=== PATIENT | female | born 1980 | race Two or more races ===

== ENCOUNTER 2018-10-17 01:46 | Outpatient (CLI) | payer OTHER | END 2018-10-17 09:13 | disposition home or self-care (01) | LOC: OBS/DEL 01:46 | DX: O26.892 Other specified pregnancy related conditions, second trimester (principal); M62.830 Muscle spasm of back; Z34.02 Encounter for supervision of normal first pregnancy, second trimester ==

== ENCOUNTER 2018-11-29 13:23 | Outpatient (CLI) | payer OTHER | END 2018-11-29 15:42 | disposition home or self-care (01) | LOC: NST 13:23 | DX: Z34.82 Encounter for supervision of other normal pregnancy, second trimester (principal) ==

== ENCOUNTER 2018-12-04 15:28 | Outpatient (CLI) | payer OTHER | END 2018-12-04 16:58 | disposition HB | LOC: NST 15:28 | DX: Z34.83 Encounter for supervision of other normal pregnancy, third trimester (principal) ==

== ENCOUNTER 2018-12-20 13:22 | Inpatient (IN) | payer OTHER ==
[~2018-12-20] VITALS: Ht 154.9 cm; Wt 78.9 kg
[2018-12-21] MEDS ORDERED: OBSTETRIX ONE1 EACH PO (09:22)
[2018-12-21] MEDS ORDERED: NIFEDIPINE ER60 M1 PO (09:23)
== END 2018-12-23 11:04 | disposition home or self-care (01) | DRG 833 ==
LOC: NST 13:22 → LDR 14:23 → OB/GYN 14:23
PROVIDERS: ADMIT Obstetrics & Gynecology
PROC: 4A0HXFZ Measurement of Products of Conception, Cardiac Rhythm, External Approach (ICD-10-PCS; principal; 2018-12-20)
DX: O60.03 Preterm labor without delivery, third trimester (principal)

== ENCOUNTER 2019-01-03 12:17 | Outpatient (CLI) | payer OTHER ==
[~2019-01-03 12:17] MED LIST: NIFEDIPINE ER60 M1 PO; OBSTETRIX ONE1 EACH PO
== END 2019-01-03 13:30 | disposition home or self-care (01) ==
LOC: NST 12:17
DX: Z34.83 Encounter for supervision of other normal pregnancy, third trimester (principal)

== ENCOUNTER 2019-01-17 12:52 | Outpatient (CLI) | payer OTHER | END 2019-01-17 13:49 | disposition home or self-care (01) | LOC: NST 12:52 | DX: Z34.83 Encounter for supervision of other normal pregnancy, third trimester (principal) ==

== ENCOUNTER 2019-01-26 14:38 | Inpatient (IN) | payer OTHER ==
[~2019-01-26] VITALS: Ht 152.4 cm; Wt 2.3 kg
[2019-01-30] MEDS ORDERED: KETO10TA2 PO (07:47)
[2019-01-30] MEDS ORDERED: OXYC1TAB9 PO (07:48)
== END 2019-01-30 09:24 | disposition home or self-care (01) | DRG 786 ==
LOC: SURG-SUITE 14:38 → LDR 14:38 → O/R 19:30 → SURG-SUITE 20:20
PROVIDERS: ADMIT Obstetrics & Gynecology
PROC: 4A0HXFZ Measurement of Products of Conception, Cardiac Rhythm, External Approach (ICD-10-PCS; 2019-01-26)
PROC: 10D00Z1 Extraction of Products of Conception, Low, Open Approach (ICD-10-PCS; principal; 2019-01-26 17:45)
DX: O82 Encounter for cesarean delivery without indication (principal); O60.14X0 Preterm labor third trimester with preterm delivery third trimester, not applicable or unspecified; O30.003 Twin pregnancy, unspecified number of placenta and unspecified number of amniotic sacs, third trimester; O32.1XX0 Maternal care for breech presentation, not applicable or unspecified; Z3A.35 35 weeks gestation of pregnancy; Z37.2 Twins, both liveborn

== ENCOUNTER 2019-02-01 13:01 | Emergency (ER) | payer OTHER ==
[~2019-02-01] VITALS: Ht 154.9 cm; Wt 83.9 kg
[~2019-02-01 13:01] MED LIST changes: +KETO10TA2 PO; +OXYC1TAB9 PO
[2019-02-01] MEDS ORDERED: PERCOCET 5-3251 EACH (13:11)
== END 2019-02-01 16:03 | disposition home or self-care (01) ==
LOC: ER 13:01
DX: G51.0 Bell's palsy (principal)